=== PATIENT | female | born 2000 | race Caucasian/White ===

== ENCOUNTER 2022-03-24 11:19 | Emergency (ER) | payer BC, SELFPAY ==
[2022-03-24 11:43] VITALS: BP 129/73; PULSE 106; RESP 22; TEMP 36.8; O2SAT 100; BMI 20.7
[2022-03-24 12:17] LABS: COVID19 -Nasal RAPID Negative (Negative)
== END 2022-03-24 12:50 | disposition left against medical advice (07) ==
PROVIDERS: Emergency Provider Emergency Medicine
DX: R50.9 Fever, unspecified (principal); Z20.822 Contact with and (suspected) exposure to COVID-19
CPT/HCPCS: 87635; 99281; C9803